=== PATIENT | female | born 1995 | race African-American/Black ===

== ENCOUNTER 2017-05-01 20:41 | Observation (INO) | payer MEDICAID ==
[~2017-05-01] VITALS: Ht 162.6 cm; Wt 59.0 kg
[2017-05-01 21:12] LABS: CLARITY URINE CLEAR (CLEAR); COLOR URINE YELLOW (YELLOW); KETONES URINE 4+ (NEGATIVE); LEUKOCYTE ESTERASE URINE NEGATIVE (NEGATIVE); NITRITE URINE NEGATIVE (NEGATIVE); OCCULT BLOOD URINE NEGATIVE (NEGATIVE); PROTEIN URINE TRACE (NEGATIVE); SPECIFIC GRAVITY URINE 1.022 (1.005-1.030); UROBILINOGEN URINE 0.2 E.U./dL (0.2-1.0)
[2017-05-01] MEDS ORDERED: LACTATED RINGERS 1,000 ML IV ONE (21:30)
[2017-05-01] MEDS ORDERED: ACETAMINOPHEN 500MG TABLET PO NR (21:30)
[2017-05-01 21:32] LABS: *AMPHETAMINES SCREEN URINE NEGATIVE (NEGATIVE); *BARBITURATES SCREEN URINE NEGATIVE (NEGATIVE); *BENZODIAZEPINES SCREEN URINE NEGATIVE (NEGATIVE); *COCAINE SCREEN URINE NEGATIVE (NEGATIVE); METHADONE URINE SCREEN NEGATIVE (NEGATIVE); OPIATES URINE SCREEN NEGATIVE (NEGATIVE); PHENCYCLIDINE URINE SCREEN NEGATIVE (NEGATIVE)
[2017-05-01] MEDS ORDERED: ONDANSETRON HCL 4MG/2ML VIAL IV NR (21:45)
[2017-05-01 21:50] LABS: CANNABINOID URINE SCREEN PRESUMTIVE POSITIVE (NEGATIVE)
[2017-05-10 07:13] LABS: CANNABINOID CONFIRMATION URINE Positive (.)
== END 2017-05-01 22:30 | disposition home or self-care (01) ==
LOC: L&D 20:41
PROVIDERS: ADMIT Specialist; ATTEND Specialist
DX: O21.2 Late vomiting of pregnancy (principal); O26.892 Other specified pregnancy related conditions, second trimester; R05 Cough; R51 Headache; Z3A.24 24 weeks gestation of pregnancy
CPT/HCPCS: 80305; 80349; 81001; 96361; 96374; G0378; J2405; J7120; 96360; 96375

== ENCOUNTER 2017-05-01 22:37 | Emergency (ER) | payer MEDICAID, OTHER ==
[~2017-05-01] VITALS: Ht 162.6 cm; Wt 59.0 kg
[2017-05-01] MEDS ORDERED: SODIUM CHLORIDE 0.9% 1,000 ML IV ONE (23:10)
[2017-05-01 23:52] LABS: HCG SCREEN POSITIVE
[2017-05-02 00:51] LABS: CLARITY URINE CLEAR (CLEAR); COLOR URINE YELLOW (YELLOW); KETONES URINE 4+ (NEGATIVE); LEUKOCYTE ESTERASE URINE TRACE (NEGATIVE); NITRITE URINE NEGATIVE (NEGATIVE); OCCULT BLOOD URINE NEGATIVE (NEGATIVE); PROTEIN URINE TRACE (NEGATIVE); SPECIFIC GRAVITY URINE 1.024 (1.005-1.030); UROBILINOGEN URINE 0.2 E.U./dL (0.2-1.0)
[2017-05-02 06:42] VITALS: BP 105/57
== END 2017-05-02 06:46 | disposition home or self-care (01) ==
LOC: ER 22:37
DX: O99.512 Diseases of the respiratory system complicating pregnancy, second trimester (principal); J09.X2 Influenza due to identified novel influenza A virus with other respiratory manifestations; O99.332 Smoking (tobacco) complicating pregnancy, second trimester; F17.200 Nicotine dependence, unspecified, uncomplicated; Z3A.24 24 weeks gestation of pregnancy
CPT/HCPCS: 81001; 84703; 87804; 96360; 99284; J7030; Z7610

== ENCOUNTER 2024-03-06 10:34 | Emergency (ER) | payer OTHER ==
[~2024-03-06] VITALS: Ht 162.6 cm; Wt 59.0 kg
[2024-03-06 11:26] VITALS: O2SAT 88
[2024-03-06] MEDS ORDERED: KETOROLAC 30MG/ML VIAL IM ONE (11:45)
[2024-03-06 11:48] VITALS: TEMP 36.89184; O2SAT 98
[2024-03-06 12:28] VITALS: BP 111/69; PULSE 78; RESP 16
[2024-03-06] MEDS: VISCOUS LIDOCAINE 2% 15 ML UDC PO NR (12:28)
[2024-03-06] MEDS: KETOROLAC 30MG/ML VIAL IM NR (12:28)
== END 2024-03-06 12:31 | disposition home or self-care (01) ==
LOC: ER 10:34
DX: J39.2 Other diseases of pharynx (principal)
CPT/HCPCS: 96372; 99283; J1885; Z7610

== ENCOUNTER 2024-07-08 09:28 | Emergency (ER) | payer MEDICAID, OTHER ==
[~2024-07-08] VITALS: Ht 162.6 cm; Wt 57.0 kg
[2024-07-08 09:36] VITALS: BP 123/72; PULSE 104; RESP 16; TEMP 36.6; O2SAT 99
[2024-07-08] MEDS ORDERED: HYDROCODONE/ACETAMINOPHEN 5/325MG TABLET PO ONE (10:15)
[2024-07-08] MEDS ORDERED: IBUPROFEN 400MG TABLET PO ONE (10:15)
[2024-07-08] MEDS: BACITRACIN ZINC OINT UDPKT TOP ONE (10:30)
[2024-07-08] MEDS ORDERED: LIDOCAINE HCL/EPINEPHRINE 1%-EPI 1:100,000 20ML VIAL INFIL ONE (10:30)
[2024-07-08] MEDS ORDERED: LIDOCAINE HCL/PF 1% 10 MG/ML 5ML VIAL INFIL ONE (10:30)
[2024-07-08 11:53] LABS: CLARITY URINE CLEAR (CLEAR); COLOR URINE YELLOW (YELLOW); GLUCOSE URINE NEGATIVE (NEGATIVE); KETONES URINE 4+ (NEGATIVE); LEUKOCYTE ESTERASE URINE NEGATIVE (NEGATIVE); NITRITE URINE NEGATIVE (NEGATIVE); OCCULT BLOOD URINE 2+ (NEGATIVE); PH URINE 5.5 (4.5-8.0); PROTEIN URINE TRACE (NEGATIVE); SPECIFIC GRAVITY URINE 1.013 (1.005-1.030); UROBILINOGEN URINE 0.2 E.U./dL (0.2-1.0)
[2024-07-08 12:14] LABS: BACTERIA URINE FEW; RBC URINE NONE SEEN /hpf (0-2); SQUAMOUS EPITHELIAL CELL URINE 1+ /lpf (RARE/1+); WBC URINE 0-2 /hpf (0-2); YEAST URINE NONE SEEN
[2024-07-08] MEDS ORDERED: SULF1TAB48 MT (12:19)
[2024-07-08] MEDS ORDERED: AMOX1TAB16 MT (12:19)
[2024-07-12 04:07] LABS: CHLAMYDIA TRACHOMATIS NAA Negative (Negative); NEISSERIA GONORRHOEAE NAA Negative (Negative)
== END 2024-07-08 12:38 | disposition home or self-care (01) ==
LOC: ER 09:28
DX: N89.8 Other specified noninflammatory disorders of vagina (principal)
CPT/HCPCS: 87491; 87591; 81003; 81025; 87210; 99284; J2004; J2003; Z7610 ×3